=== PATIENT | female | born 1985 | race Caucasian/White ===

== ENCOUNTER 2023-08-18 11:38 | Emergency (ER) | payer BC ==
[~2023-08-18] VITALS: Ht 167.6 cm; Wt 100.2 kg
[2023-08-18 12:07] LABS: BASOPHILS # (AUTO) 0.1 X10'3 (0-0.2); BASOPHILS % (AUTO) 0.4 % (0-1); EOSINOPHILS # (AUTO) 0.2 X10'3 (0-0.9); EOSINOPHILS % (AUTO) 1.5 % (0-6); HEMATOCRIT 49.1 % (35.0-45.0); HEMOGLOBIN 16.7 g/dl (12.0-16.0); LYMPHOCYTES # (AUTO) 1.5 X10'3 (1.1-4.8); LYMPHOCYTES % (AUTO) 8.9 % (21-51); MEAN CORPUSCULAR HEMOGLOBIN 29.3 PG (27.0-31.0); MEAN CORPUSCULAR HGB CONC 33.9 g/dL (33.0-36.5); MEAN CORPUSCULAR VOLUME 86.6 FL (78-98); MEAN PLATELET VOLUME 7.5 FL (7.4-10.4); MONOCYTES # (AUTO) 1.5 X10'3 (0-0.9); MONOCYTES % (AUTO) 8.9 % (2-12); NEUTROPHILS # (AUTO) 13.1 X10'3 (1.8-7.7); NEUTROPHILS % (AUTO) 80.3 % (42-75); PLATELET COUNT 490 X10'3 (140-440); RED BLOOD COUNT 5.67 X10'6 (4.20-5.60); RED CELL DISTRIBUTION WIDTH 14.9 % (11.5-14.5); WHITE BLOOD COUNT 16.3 X10'3 (4.5-11.0)
[2023-08-18 12:21] LABS: ALANINE AMINOTRANSFERASE 15 U/L (12-78); ALBUMIN 3.4 G/DL (3.4-5.0); ALBUMIN/GLOBULIN RATIO 1.2 (1.1-1.5); ALKALINE PHOSPHATASE 54 IU/L (46-116); ANION GAP 13 (8-16); ASPARTATE AMINO TRANSFERASE 9 U/L (10-37); BILIRUBIN,DIRECT 0.1 MG/DL (0-0.3); BILIRUBIN,TOTAL 0.8 MG/DL (0.1-1.0); BLOOD UREA NITROGEN 23 MG/DL (7-18); BUN/CREATININE RATIO 25.6 (10.0-20.0); CALCIUM 8.4 MG/DL (8.5-10.1); CHLORIDE 104 MMOL/L (99-107); GLUCOSE 115 MG/DL (70-104); LIPASE 22 U/L (16-77); MAGNESIUM 2.1 MG/DL (1.5-2.4); POTASSIUM 3.5 MMOL/L (3.5-5.1); SODIUM 139 MMOL/L (135-145); TOTAL PROTEIN 6.3 G/DL (6.4-8.2); eCRCL 79 ML/MIN; eGFR 70 ML/MIN
[2023-08-18 12:30] VITALS: TEMP 97.6
[2023-08-18 12:34] LABS: HCG SERUM QL NEGATIVE
[2023-08-18] MEDS: normal saline 1000ML IV soln IV ONE (13:00)
[2023-08-18] MEDS ORDERED: ketorolac trometh. 30mg/ml inj. IV ONE (13:10)
[2023-08-18] MEDS: ondansetron/PF 4mg/2ml inj IV ONE (13:42)
[2023-08-18] MEDS: LORazepam 2 mg/ml vial IV ONE (13:43)
[2023-08-18] MEDS: ketorolac tromethamine 15mg/ml inj. IV ONE (13:43)
[2023-08-18 13:49] LABS: BILIRUBIN,URINE MODERATE (Neg); CLARITY,URINE CLOUDY (Clear); COLOR,URINE YELLOW (Yellow); GLUCOSE, URINE NEGATIVE (Neg); KETONES,URINE 40 mg/dl (Neg); LEUKOCYTE ESTERASE ,URINE NEGATIVE (Neg); NITRITES, URINE NEGATIVE (Neg); OCCULT BLOOD,URINE NEGATIVE (Neg); PROTEIN,URINE TRACE mg/dl (Neg); UA COLLECTION TYPE CLN CATCH MIDSTREAM; UROBILINOGEN,URINE 0.2 E.U/dL (0.2-1.0)
[2023-08-18 13:54] LABS: SQUAMOUS EPITHELIAL CELL,UR MANY /LPF (FEW)
[2023-08-18 13:55] LABS: BACTERIA,URINE 2+ /HPF (Neg); MUCUS STRANDS MANY /LPF (Neg); RBC,URINE 0-2 /HPF (0-2); TRANSITIONAL EPI CELLS,URINE MODERATE /HPF; WBC,URINE 0-4 /HPF (0-4)
[2023-08-18] MEDS: ipratropium/albuterol 3ml nebule NEB ONE (15:12)
[2023-08-18 15:14] VITALS: PULSE 106; RESP 16; O2SAT 92
[2023-08-18] MEDS ORDERED: ONDA4TAB12 PO (16:50)
[2023-08-18] MEDS ORDERED: AMOX875T2 PO (16:50)
[2023-08-18] MEDS ORDERED: AZIT-21 PO (16:50)
[2023-08-18] MEDS: famotidine/PF 10 mg/ml inj IV ONE (17:19)
[2023-08-18] MEDS: amoxicillin 250mg capsule PO ONE (17:19)
[2023-08-18] MEDS: azithromycin 250mg tablet PO ONE (17:19)
[2023-08-18] MEDS: mag hydrox/Alum hydrox/simeth 30ml oral suspension PO ONE (17:19)
[2023-08-18 17:37] VITALS: BP 104/73; PULSE 107; RESP 15; O2SAT 97
== END 2023-08-18 20:55 | disposition home or self-care (01) ==
LOC: ER 11:38
DX: J18.9 Pneumonia, unspecified organism (principal); R05.9 Cough, unspecified; R50.9 Fever, unspecified; Z79.899 Other long term (current) drug therapy
CPT/HCPCS: 36415; 71045; 71250; 80048; 80076; 81001; 83605; 83690; 83735; 84145; 84703; 85025; 87040; 94640; 96361; 96374; 96375; 99285; J1885; J2060; J2405; J3490; J7030; 94760